=== PATIENT | female | born 1955 | race Hispanic/Latino ===

== ENCOUNTER 2019-11-05 13:48 | Observation (INO) | payer OTHER ==
[~2019-11-05] VITALS: Ht 154.9 cm; Wt 61.2 kg
--- NOTE | 2019-11-05 14:27 | Emergency Department Note ---
History of Present Illnes History of Present Illness Chief Complaint: Neurological History of Present Illness This is a 64 year old female Y/O AAOX3 PRESENTS TO THE ER C/O AMS ONSET THIS AM; PER DAUGHTER, PT WAS CONFUSED THIS AM AND REPEATS QUESTIONS FREQUENTLY; PT ALSO REPORTS FRONTAL HEADACHE AND CURRENTLY REPORTS PAIN BACK OF HEAD; PERRLA; UPRIGHT AND STEADY GAIT NOTED; BILATERAL EQUAL HAND RETAIL SALES TEAMMATE NOTED; PT ONLY ABLE TO RAISE LT EYEBROW; SYMMETRICAL SMILE NOTED; V/S/S; ER DR HORVATH IN TRIAGE FOR INITIAL EVAL. . Historian: Patient Arrival Mode: Car History limited by: language barrier Robotics Testing Technician Required: Yes (DAUGHTERS AT BED SIDE) Onset (how long ago): hour(s) Radiation: Reports non-radiation Severity: moderate Progression: improving Relieving factors: none Exacerbating factors: none Associated symptoms: Reports denies other symptoms Treatments prior to arrival: none Past Medical/Family History Physician Review I have reviewed the patient's past medical and family history. Any updates have been documented here. Past Medical History Recent Fever: No Clinical Suspicion of Infectio: No New/Unexplained Change in Ment: Yes Past Medical History: Hypertension Social History Smoking Cessation: Unknown if ever smoked Alcohol Use: None Any Illegal Drug Use: No Physically hurt or threatened: No Other Any Pre-Existing Lines (PICC,: No Review of Systems Review of Systems Constitutional: Reports no symptoms EENTM: Reports no symptoms Cardiovascular: Reports no symptoms Respiratory: Reports no symptoms Gastrointestinal: Reports no symptoms Genitourinary: Reports no symptoms Musculoskeletal: Reports no symptoms Integumentary: Reports no symptoms Neurological: Reports as per HPI, Reports headache (FRONTAL HEADCHE) Psychological: Reports no symptoms Endocrine: Reports no symptoms Hematological/Lymphatic: Reports no symptoms Physical Exam Related Data Allergies: Coded Allergies: ibuprofen (Verified Allergy, Intermediate, 11/05/19) Triage Vital Signs Vital Signs Date Time Temp Pulse Resp B/P (MAP) Pulse Ox O2 Delivery O2 Flow Rate FiO2 11/05/19 14:11 99.0 71 20 155/82 100 Room Air Vital signs reviewed: Yes Physical Exam CONSTITUTIONAL Constitutional: Present well-developed, Present well-nourished HENT HENT: Present normocephalic, Present atraumatic, Present oropharynx clear/moist, Present nose normal HENT L/R: Present left ext ear normal, Present right ext ear normal EYES Eyes: Reports PERRL, Reports conjunctivae normal NECK Neck: Present ROM normal PULMONARY Pulmonary: Present effort normal, Present breath sounds normal CARDIOVASCULAR Cardiovascular: Present regular rhythm, Present heart sounds normal, Present capillary refill normal, Present normal rate GASTROINTESTINAL Abdominal: Present soft, Present nontender, Present bowel sounds normal GENITOURINARY Genitourinary: Present exam deferred SKIN Skin: Present warm, Present dry MUSCULOSKELETAL Musculoskeletal: Present ROM normal NEUROLOGICAL Neurological: Present alert, Present oriented x 3, Present no gross motor or sensory deficits, Present other (NO NEURO DEFICIT AT THIS TIME) PSYCHOLOGICAL Psychological: Present mood/affect normal, Present judgement normal Procedures 12 Lead ECG Interpretation ECG Interpretation : ECG: ECG 1 Robotics Testing Technician: Interpreted by ED physician Date: Nov 05, 2019 Time: 14:43 Prior ECG tracings: not available for review Rhythm: sinus rhythm Rate: normal BPM: 69 QRS axis: left T wave inversion: aVR, V1, V4, V5, V6 T waves flattening: V2 Q waves: V1 Clinical Impression: abnormal ECG Assessment & Plan Medical Decision Making MDM TIA VS CVA Reassessment Reassessment doing better, AA0x3 , slow to recall but doing ok Assessment & Plan Final Impression: (1) TIA (transient ischemic attack) Depart Disposition: ADMITTED Last Vital Signs Date Time Temp Pulse Resp B/P (MAP) Pulse Ox O2 Delivery O2 Flow Rate FiO2 11/05/19 14:11 99.0 71 20 155/82 100 Room Air Physician Attestation Provider Attestation case discussed with Dr Caballero and ELAYNE Barnett MD Nov 05, 2019 14:27
--- OUTSIDE RECORDS SUMMARY | 2019-11-05 14:38 | XMS REPORT | Continuity of Care Document ---
Author Author [facility] t Organization [facility] Address [address] [place] [address] Phone Unavailable Care Team Providers Care Fish Frog Or Oyster Farmer Name Role Phone Unavailable Unavailable Problems Condition Name Condition Details Condition Category Status Onset Date Resolution Date Last Treatment Date Treating Clinician Comments Source Hyperlipidemia Hyperlipidemia Problem Active 2018-11-13 00:00:00 [facility] Allergies, Adverse Reactions, Alerts This patient has no known allergies or adverse reactions. Social History Smoking Status Start Date Stop Date Source Never Smoker [facility] nidhi Medications Ordered Medication Name Filled Medication Name Start Date Stop Da te Current Medication? Ordering Clinician Indication Dosage Frequency Signature (SIG) Comments Components Source ciclopirox 8 % topical solution APPLY TO THE AFFECTED AREA(S) BY TOPICAL ROUTE ONCE DAILY PREFERABLY AT BEDTIME OR 8 HOURS BEFORE WASHING ciclopirox 8 % topical solution APPLY TO THE AFFECTED AREA(S) BY TOPICAL ROUTE ONCE DAILY PREFERABLY AT BEDTIME OR 8 HOURS BEFORE WASHING No ciclopirox 8 % topical solution APPLY TO THE AFFECTED AREA(S) BY TOPICAL ROUTE ONCE DAILY PREFERABLY AT BEDTIME OR 8 HOURS BEFORE WASHING [facility] clotrimazole-betamethasone 1 %-0.05 % to pical cream Apply 1 application every day by topical route for 10 days. clotrimazole-betamethasone 1 %-0.05 % to pical cream Apply 1 application every day by topical route for 10 days. No clotrimazole-betamethasone 1 %-0.05 % to pical cream Apply 1 application every day by topical route for 10 days. Adarsh antunez [facility] Immunizations Ordered Immunization Name Filled Immunization Name Date Status Comments Source Tdap Tdap 2018-11-13 11:16:30 Completed Albert isaacs [facility] Vital Signs Vital Name Observation Time Observation Value Comments Source BP Diastolic 2019-10-22 00:00:00 74 mm[Hg] [facility] Height 2019-10-22 00:00:00 61 [in_i] [facility] BMI (Body Mass Index) 2019-10-22 00:00:00 25.5 kg/m2 [facility] BP Systolic 2019-10-22 00:00:00 134 mm[Hg] [facility] Body Weight 2019-10-22 00:00:00 135 [lb_av] [facility] BP Diastolic 2019-09-10 00:00:00 78 mm[Hg] [facility] Height 2019-09-10 00:00:00 61 [in_i] [facility] BMI (Body Mass Index) 2019-09-10 00:00:00 25.5 kg/m2 [facility] BP Systolic 2019-09-10 00:00:00 148 mm[Hg] [facility] Body Weight 2019-09-10 00:00:00 135 [lb_av] [facility] BP Diastolic 2018-11-13 00:00:00 82 mm[Hg] [facility] Height 2018-11-13 00:00:00 61 [in_i] [facility] BMI (Body Mass Index) 2018-11-13 00:00:00 24.9 kg/m2 [facility] BP Systolic 2018-11-13 00:00:00 138 mm[Hg] [facility] Body Weight 2018-11-13 00:00:00 132 [lb_av] [facility] Procedures Procedure Date / Time Performed Performing Clinician Sour e MAMMO, screening, digital, bilateral 2018-11-13 00:00:00 [facility] Plan of Care Planned Activity Planned Date Details Comments Source Future Appointment 2020-10-21 00:00:00 Patricia Sommer, [address]; [address], [place] [address] [facility] Encounters Start Date/Time End Date/Time Encounter Type Admission Type Att[facility] Facility Care Department Encounter ID Source 2019-10-22 00:00:00 2019-10-22 00:00:00 Patricia Sommer MD: [id number], [address], [place] [address], Ph. [facility] [place] - [facility] - CHRISTY_BRIAN_Byron (WAG) [id number] [facility] 2019-09-10 00:00:00 2019-09-10 00:00:00 Patricia Sommer MD: [address], [address], [place] [address], Ph. [facility] - [facility] - VM_HOFloyd_Inman (WAG) [id number] [facility] e 2018-11-13 00:00:00 2018-11-13 00:00:00 Herve hoffman MD: [address] [place] [address], Ph. [facility] - [facility] - [facility] [id number] [facility] Results Test Description Test Time Test Comments Results Result Comments Source SCR MAMM BILATERAL HEIDE CAD DIGITAL 2018-12-09 12:28:59 - SCR MAMM BILATERAL HEIDE CAD DIGITALBILATERAL DIGITAL SCREENING MAMMOGRAM 3D/2D WITH CAD: 12/09/2018CLINICAL: Asymptomatic. Digital breast tomosynthesis was performed in addition to routine CC and MLO views. Current mammographic images were evaluated by either a FotoSwipe M-Vu or a Bypass Mobile ImageMiniMonoscker CAD (computer aided detection system). Comparison is made to exams dated 10/25/2017 mammogram, 2014 mammogram - [facility]-, and 03/05/2012 mammogram - [facility]. There are scattered fibroglandular tissues in both breasts. There is a benign mass and an intramammary node in the left breast. There also are post operative findings in the right breast. Additionally, there is a biopsy clip in the left breast. No suspicious mass, architectural distortion, malignant type calcification, or lymph node abnormality detected. Breast architecture is stable compared to prior exams.IMPRESSION: BENIGNThere is no mammographic evidence of malignancy. Resume annual screening mammography in one year. Zion lawson/víctor:12/09/2018 12:28:59 copy to: [facility], ph: [phone], fax: [phone] Technologist: Savanah BROWN, [facility] FWImaging Technologist: Arin BROWN, [facility]-FWletter sent: BIRADS 1-2 Normal Mammogram BI-RADS: 2 Benign
--- NOTE | 2019-11-05 15:18 | Diagnostic Imaging Report ---
Examination: CT head without contrast Clinical Indication: Altered mental status. Confusion. Headache. Technique: Transaxial noncontrast images from the skull base through the vertex were obtained. Sagittal and coronal reformatted images were done. Dose modulation, iterative reconstruction, and/or weight based adjustment of the mA/kV was utilized to reduce the radiation dose to as low as reasonably achievable. Comparison: None. Findings: Scalp: No abnormalities. Bones: Intact. No fractures. No blastic or lytic lesions. Brain sulci: Appropriate for patient's age. Ventricles: Normal in size and configuration. No hydrocephalus. Extra-axial space: No abnormalities. Parenchyma: No abnormal densities. No masses, hemorrhage, or acute or chronic cortical based vascular insults. Suprasellar region: No abnormalities. Craniocervical junction: The foramen magnum is patent. No Chiari one malformation. Impression: No acute intracranial abnormality. Signed by: Dr. Sosa Nagy M.D. on 11/05/2019 3:15 PM
[2019-11-05 15:27] LABS: BASOPHILS % 0.5 % (0.0-1.0); EOSINOPHILS # (AUTO) 0.1 (0.0-0.4); EOSINOPHILS % 0.6 % (0.0-6.0); HEMATOCRIT 43.6 % (34.2-44.1); HEMOGLOBIN 13.8 g/dL (12.0-16.0); LYMPHOCYTES # (AUTO) 1.9 (1.0-3.2); LYMPHOCYTES % 24.6 % (18.0-39.1); MEAN CORPUSCULAR HEMOGLOBIN 25.7 pg (28-32); MEAN CORPUSCULAR HGB CONC 31.7 g/dL (31-35); MEAN CORPUSCULAR VOLUME 81.3 fL (81-99); MONOCYTES # (AUTO) 0.6 (0.2-0.8); NEUTROPHILS # (AUTO) 5.2 (2.1-6.9); PLATELET COUNT 326 x10e3/uL (140-360); RED BLOOD COUNT 5.36 x10e6/uL (3.6-5.1); RED CELL DISTRIBUTION WIDTH 13.8 % (11.7-14.4)
[2019-11-05 15:31] LABS: BILIRUBIN,URINE NEGATIVE (NEGATIVE); CLARITY,URINE SL CLOUDY (CLEAR); COLOR,URINE YELLOW (YELLOW); KETONES,URINE NEGATIVE (NEGATIVE); LEUKOCYTE ESTERASE ,URINE TRACE (NEGATIVE); NITRITE,URINE NEGATIVE (NEGATIVE); PROTEIN,URINE DIPSTICK NEGATIVE (NEGATIVE); URINE UROBILINOGEN 0.2 mg/dL (0.2 - 1)
[2019-11-05 15:32] LABS: INR 0.87; PROTHROMBIN TIME 12.3 seconds (11.9-14.5)
[2019-11-05 15:33] LABS: PARTIAL THROMBOPLASTIN TIME 35.2 seconds (23.8-35.5)
[2019-11-05 15:39] LABS: ALANINE AMINOTRANSFERASE 24 IU/L (0-55); ALBUMIN 4.1 g/dL (3.5-5.0); ALBUMIN/GLOBULIN RATIO 1.1 (0.8-2.0); ALKALINE PHOSPHATASE 103 IU/L (40-150); ANION GAP 18.9 mmol/L (8-16); BLOOD UREA NITROGEN 8 mg/dL (7-26); BUN/CREATININE RATIO 12 (6-25); CALCIUM 9.7 mg/dL (8.4-10.2); CARBON DIOXIDE 21 mmol/L (22-29); CHLORIDE 107 mmol/L (98-107); CREATINE KINASE 51 IU/L (29-168); CREATININE, SERUM 0.66 mg/dL (0.57-1.11); EST GLOMERULAR FILTRATION RATE > 60 ML/MIN (60-); GLUCOSE 99 mg/dL (74-118); POTASSIUM 3.9 mmol/L (3.5-5.1); SODIUM 143 mmol/L (136-145)
[2019-11-05 15:45] LABS: BACTERIA,URINE FEW /HPF; EPITHELIAL CELLS,URINE FEW /LPF; RBC,URINE 0-5 /HPF (0-5)
--- OUTSIDE RECORDS SUMMARY | 2019-11-05 16:26 | XMS REPORT | Continuity of Care Document ---
Author Author [facility] t Organization [facility] Address [address] [place] [address] [address] [place] [address] Phone Unavailable Care Team Providers Care Communication Lecturer Name Role Phone Robb HORVATH Attphys Unavailable Problems Condition Name Condition Details Condition Category Status Onset Date Resolution Date Last Treatment Date Treating Clinician Comments Source Hyperlipidemia Hyperlipidemia Problem Active 2018-11-13 00:00:00 [facility] Allergies, Adverse Reactions, Alerts This patient has no known allergies or adverse reactions. Social History Smoking Status Start Date Stop Date Source Never Smoker [facility] nidhi Medications Ordered Medication Name Filled Medication [...] AT BEDTIME OR 8 HOURS BEFORE WASHING [facility] clotrimazole-betamethasone 1 %-0.05 % to pical cream Apply 1 application every day by topical route for 10 days. clotrimazole-betamethasone 1 %-0.05 % to pical cream Apply 1 application every day by topical route for 10 days. No clotrimazole-betamethasone 1 %-0.05 % to pical cream Apply 1 application every day by topical route for 10 days. Adarsh antunez [facility] Immunizations Ordered Immunization Name Filled Immunization Name Date Status Comments Source Tdap Tdap 2018-11-13 11:16:30 Completed Albert isaacs [facility] Vital Signs Vital Name Observation Time Observation Value Comments Source BP Diastolic 2019-10-22 00:00:00 74 mm[Hg] [facility] Height 2019-10-22 00:00:00 61 [in_i] [facility] BMI (Body Mass Index) 2019-10-22 00:00:00 25.5 kg/m2 [facility] BP Systolic 2019-10-22 00:00:00 134 mm[Hg] [facility] Body Weight 2019-10-22 00:00:00 135 [lb_av] [facility] BP Diastolic 2019-09-10 00:00:00 78 mm[Hg] [facility] Height 2019-09-10 00:00:00 61 [in_i] [facility] BMI (Body Mass Index) 2019-09-10 00:00:00 25.5 kg/m2 [facility] BP Systolic 2019-09-10 00:00:00 148 mm[Hg] [facility] Body Weight 2019-09-10 00:00:00 135 [lb_av] [facility] BP Diastolic 2018-11-13 00:00:00 82 mm[Hg] [facility] Height 2018-11-13 00:00:00 61 [in_i] [facility] BMI (Body Mass Index) 2018-11-13 00:00:00 24.9 kg/m2 [facility] BP Systolic 2018-11-13 00:00:00 138 mm[Hg] [facility] Body Weight 2018-11-13 00:00:00 132 [lb_av] [facility] Procedures Procedure Date / Time Performed Performing Clinician [facility] e MAMMO, screening, digital, bilateral 2018-11-13 00:00:00 [facility] Plan of Care Planned Activity Planned Date Details Comments Source Future Appointment 2020-10-21 00:00:00 Patricia Sommer, [address]; [address], [place] [address] [facility] Encounters Start Date/Time End Date/Time Encounter Type Admission Type Attendi [facility] Facility Care Department Encounter ID Source 2019-10-22 00:00:00 2019-10-22 00:00:00 Patricia Sommer MD: [address], [address], [place] [address], Ph. [facility] [place] [facility] - CHRISTY_BRIAN_Byron (WAG) [id number] [facility] 2019-09-10 00:00:00 2019-09-10 00:00:00 Patricia Sommer MD: [address] [facility] [address] [address], Ph. [facility] - VM_HOFloyd_Byron (WAG) [id number] [facility] e 2018-11-13 00:00:00 2018-11-13 00:00:00 Herve hoffman MD: [address] [place] [address], Ph. [facility] [id number] [facility] Results Test Description Test Time Test Comments Results Result Comments Source CT BRAIN WO 2019-11-05 15:14:00 [place] [address] Patient Name: BALJIT YEPEZ MR #: [id number] : 1955 Age/Sex: 64/F Req #: [id number] Adm Physician: Ordered by: ELAYNE HORVATH MD Report #: [id number] Location: ER Room/Bed: Procedure: [id number] CT/CT BRAIN WO Exam Date: 11/05/19 Exam Time: 1432 REPORT STATUS: Signed Examination: CT head without contrast Clinical Indication: Altered mental status. Confusion. Headache. Technique: Transaxial noncontrast images from the skull base through the vertex were obtained. Sagittal and coronal reformatted images were done. Dose modulation, iterative reconstruction, and/or weight based adjustment of the mA/kV was utilized to reduce the radiation dose to as low as reasonably achievable. Comparison: None. Findings: Scalp: No abnormalities. Bones: Intact. No fractures. No blastic or lytic lesions. Brain sulci: Appropriate for patient's age. Ventricles: Normal in size and configuration. No hydrocephalus. Extra-axial space: No abnormalities. Parenchyma: No abnormal densities. No masses, hemorrhage, or acute or chronic cortical based vascular insults. Suprasellar region: No abnormalities. Craniocervical junction: The foramen magnum is patent. No Chiari one malformation. Impression: No acute intracranial abnormality. Signed by: Dr. Jordy Nagy M.D. on 11/05/2019 3:15 PM Dictated By: JORDY REEVES MD 14 Transcribed By: ARRON on 11/05/191514 COPY TO: ELAYNE HORVATH MD SCR MAMM BILATERAL HEIDE CAD DIGITAL 2018-12-09 12:28:59 - SCR MAMM BILATERAL HEIDE CAD DIGITALBILATERAL DIGITAL SCREENING MAMMOGRAM 3D/2D WITH CAD: 12/09/2018CLINICAL: Asymptomatic. Digital breast tomosynthesis was performed in addition to routine CC and MLO views. Current mammographic images were evaluated by either a Pluralsight M-Vu or a Reelation ImageChecker CAD (computer aided detection system). Comparison is made to exams dated 10/25/2017 mammogram, 2014 mammogram - [facility] and 03/05/2012 mammogram - [facility]. There are scattered fibroglandular tissues in both [...] annual screening mammography in one year. Zion Guzman M.D. ss/penrad:12/09/2018 12:28:59 copy to: [facility], ph: [phone], fax: [phone] Technologist: Savanah BROWN, [facility] FWImaging Technologist: Arin BROWN, [facility]-FWletter sent: BIRADS 1-2 Normal Mammogram BI-RADS: 2 Benign
[2019-11-05] MEDS ORDERED: DIPHENHYDRAMINE HCL INJ 50 MG/ML VIAL IV PRN (16:30)
[2019-11-05] MEDS ORDERED: ACETAMINOPHEN 325 MG TAB PO PRN (16:30)
[2019-11-05] MEDS ORDERED: SODIUM CHLORIDE FLUSH 10 ML SYR INJ PRN (16:30)
[2019-11-05] MEDS ORDERED: ONDANSETRON HCL INJ 2MG/ML 2ML 2 MG/ML VIAL IV PRN (16:30)
[2019-11-05] MEDS: FAMOTIDINE 20 MG TAB PO SCH (17:25)
--- NOTE | 2019-11-05 17:45 | NUR ---
pt arrived to room 215 from ER. pt awake, alert, oriented X3, ambulatory with stand-by assist. no s/s distress. will continue to monitor.
[2019-11-05 18:00] VITALS: BP 141/71
--- NOTE | 2019-11-05 19:00 | NUR ---
change of shift report given to ROB Crane for completion of admission and transfer of care. pt in stable condition.
[2019-11-05 19:30] VITALS: BP 152/80
[2019-11-05 19:32] VITALS: BP 141/71
[2019-11-05] MEDS ORDERED: POLYETHYLENE GLYCOL 3350 17 GM PACK PO PRN (19:45)
[2019-11-05] MEDS ORDERED: HYDRALAZINE HCL 20 MG/ML VIAL IV PRN (19:45)
[2019-11-05] MEDS ORDERED: TEMAZEPAM 15 MG CAP PO PRN (21:00)
--- NOTE | 2019-11-05 21:22 | History and Physical ---
PCP: No PCP listed. CONSULTING PHYSICIANS: Valdo Danielson MD. CHIEF COMPLAINT: Confused. HISTORY OF PRESENT ILLNESS: The patient is a 64-year-old female, who had altered mental status this morning, apparently repeating questions frequently according to her daughter. In the emergency department, the patient complained of frontal headache and occipital pain while having an upright and steady gait, bilateral equal hand sword swallower, symmetrical smile, but only able to raise her left eyebrow. CT scan of the head was negative for acute intracranial findings. Neurology has been consulted and echocardiogram, bilateral carotid Doppler ultrasound as well as MRI of the brain have all been ordered. The patient was also noted by ER staff to have a slow recall. PAST MEDICAL HISTORY: Hypertension and hyperlipidemia. She denies any history of rheumatoid arthritis, however, wonders if she could have it as her parents had it. PAST SURGICAL HISTORY: Hysterectomy. FAMILY HISTORY: Mother had hypertension and rheumatoid arthritis. Father had rheumatoid arthritis. SOCIAL HISTORY: The patient denies any previous history of tobacco, alcohol, or illicit drug use. She lives with her daughter. The patient is a seamstress. ALLERGIES: THE PATIENT DENIES ANY HISTORY OF ALLERGY TO IBUPROFEN, WHICH IS LISTED IN HER ALLERGY LIST CURRENTLY. SHE STATES THAT ALEVE HAS CAUSED HER SHAKING IN THE PAST AND SHE THINKS SHE IS ALLERGIC TO ALEVE. HOME MEDICATIONS: None listed. REVIEW OF SYSTEMS: CONSTITUTIONAL: The patient denies any recent history of weight loss or weight gain in the last 6 months. Denies fever. Denies any sick contacts at all. EYES: The patient wears glasses. SKIN: The patient has possible" fingernail fungus," but denies any skin problems such as rash, itching, or lesions. GI: She cannot recall when she last had a bowel movement. MUSCULOSKELETAL: Hand numbness bilaterally, which is not new. NEUROLOGIC: As per history of present illness, the patient does not recall being admitted. She just woke up here, cannot recall specifics of how she arrived. She has short-term memory loss, has had frontal headache and occipital pain in the emergency department. Currently, denies any headache or head pain. Denies dizziness. Rossy available for Guyanese interpretation. A 14-point review of systems was completed and the patient denies any type for problems with ears, nose, throat, respiratory, genitourinary, psychiatric, cardiovascular, gastrointestinal, endocrine, allergic/immunological, hematologic/lymphatic systems. PHYSICAL EXAMINATION: VITAL SIGNS: Temperature 97.7, pulse 61, blood pressure 141/71, respirations 19, oxygen saturation 100% on room air. Height 5 feet 1 inch, weight 135 pounds, BMI 25.5. GENERAL: The patient is sitting in a chair at the bedside, in no acute distress. She is pleasant, however, has very poor recall and poor short-term memory. Long-term memory seems to be intact. LUNGS: Clear to auscultation. Respiratory pattern even and unlabored. No supplemental oxygen. HEENT: EOMI. Pupils are equal, round, and reactive to light and accommodation. NECK: Supple. No lymphadenopathy. No thyromegaly or JVD noted. CARDIOVASCULAR: Regular rate and rhythm without murmur. ABDOMEN: Bowel sounds positive. Soft, nontender. No guarding. EXTREMITIES: No pitting edema. No clubbing, cyanosis, or notable swelling. No signs of DVT. NEUROLOGICAL: GCS 15. Nonfocal. Forgetful, poor short-term memory. No drift when bedside neurological examination completed. No drift of either lower extremity as well. She has equal hand sword swallower. Only able to raise the left eyebrow. LABORATORY DATA: WBC 7.81, RBC 5.36, hemoglobin 13.8, hematocrit 43.6, and platelets 326. PT 12.3, INR 0.87, PTT 35.2. Sodium 143, potassium 3.9, chloride 107, CO2 of 21, anion gap 18.9, BUN 8, creatinine 0.66, estimated GFR greater than 60, glucose 99, calcium 9.7, total bilirubin 0.4, AST 22, ALT 24, alkaline phosphatase 103. Creatine kinase 51, CK-MB 0.7, troponin I 0.014. Total protein 7.8, albumin 4.1. Urinalysis was completed; color is yellow, clarity slightly cloudy, pH 6, specific gravity 1.02, negative for ketones, small amount of blood, negative for nitrites, trace amount of leukocyte esterase, negative bilirubin, 0.2 urobilinogen, rbc 0-5, wbc 6-10, few bacteria, few epithelial cells. Coronavirus PCR collected on 11/04, pending. IMAGING: CT of the brain shows no acute intracranial abnormalities. Echocardiogram pending. MRI of the brain pending. Bilateral carotid Doppler ultrasound pending. A 12-lead ECG showed normal sinus rhythm with a heart rate of 69. ASSESSMENT AND PLAN: 1. Transient ischemic attack versus cerebrovascular accident. Neurology has been consulted. Physical Therapy to eval and treat. Follow up on the aforementioned ordered diagnostic studies. Neurological bedside assessments q.4 hours for now. The patient was seen in the ER 11 and currently in room 215. 2. Controlled hypertension. Blood pressure 141/71. Home medications may not have been entered as of yet. We will resume any home antihypertensives. The patient has been started on p.r.n. IV hydralazine, however, we will change parameter to 10 mg IV every 4 hours p.r.n. for systolic blood pressure greater than 170 mmHg, permissive hypertension due to neurological status. 3. Hyperlipidemia. We will check lipid panel in the morning. Resume any antihyperlipidemic home medication if needed. 4. Prophylaxis, Pepcid, ambulatory. History and physical, billing code [id number], time spent 60 minutes. Dictated by Shaun Lambert NP MD MURALI Stroud/MONA /[id number]
[2019-11-05 23:53] VITALS: BP 118/73
[2019-11-06] VITALS (8 sets, daily range): BP systolic 109–136; BP diastolic 55–73
[2019-11-06 06:12] LABS: BASOPHILS % 0.6 % (0.0-1.0); EOSINOPHILS # (AUTO) 0.3 (0.0-0.4); HEMOGLOBIN 12.6 g/dL (12.0-16.0); LYMPHOCYTES # (AUTO) 2.7 (1.0-3.2); LYMPHOCYTES % 40.6 % (18.0-39.1); MEAN CORPUSCULAR HGB CONC 31.5 g/dL (31-35); MEAN CORPUSCULAR VOLUME 82.5 fL (81-99); MONOCYTES # (AUTO) 0.6 (0.2-0.8); MONOCYTES % 8.4 % (4.4-11.3); NEUTROPHILS % 46.1 % (38.7-80.0); PLATELET COUNT 291 x10e3/uL (140-360); RED BLOOD COUNT 4.85 x10e6/uL (3.6-5.1); RED CELL DISTRIBUTION WIDTH 13.9 % (11.7-14.4)
[2019-11-06 06:24] LABS: CHOL/HDL RATIO 5.6 (3.0-3.6); MAGNESIUM 1.9 MG/DL (1.3-2.1); PHOSPHORUS 4.1 MG/DL (2.3-4.7)
[2019-11-06 06:46] LABS: THYROID STIMULATING HORMONE 0.843 uIU/mL (0.350-4.940)
--- NOTE | 2019-11-06 07:00 | NUR ---
PATIENT IS ALERT AND IN STABLE CONDITION WITH NO S/S OF RESPIRATORY DISTRESS- NO PAIN VOICED. CALL LIGHT IS WITHIN REACH, PATIENT INSTRUCTED TO CALL FOR ASSISTANCE NEEDED.
--- NOTE | 2019-11-06 07:42 | NUR ---
Dr. Danielson called and message left for him concerning consult
[2019-11-06] MEDS: FAMOTIDINE 20 MG TAB PO SCH ×2 (08:55→15:32)
[2019-11-06] MEDS: DOCUSATE SODIUM 100 MG CAP PO SCH ×2 (08:55→15:32)
[2019-11-06 11:15] LABS: % IRON SATURATION 23 % (15-50); IRON 71 ug/dL (50-170); TOTAL IRON BINDING CAPACITY 309 ug/dL (261-478); TRANSFERRIN 221 mg/dL (180-382)
--- NOTE | 2019-11-06 12:44 | NUR ---
PATIENT OFF THE UNIT TO MRI PER WHEELCHAIR. PATIENT IS IN STABLE CONDITION WITH NO S/S OF RESPIRATORY DISTRESS.
--- NOTE | 2019-11-06 14:01 | Diagnostic Imaging Report ---
Examination: MRI BRAIN WO CONTRAST History: Headache. TIA. Comparison studies: Head CT performed yesterday. Technique: Sagittal T2; axial DWI, FLAIR, GRE or SWI, T1, Coronal FLAIR. Intravenous contrast: None Findings: Scalp: No abnormal signal. No masses. Bone marrow: Normal in signal intensity. Brain volume: Adequate for age. No volume loss. Ventricles: Normal in size and configuration. No hydrocephalus. Extra-axial spaces: No abnormalities. Parenchyma: No abnormal signal intensities. No masses, hemorrhage, or acute or chronic vascular insults. Suprasellar and sellar region: No abnormalities. Craniocervical junction: No abnormalities. The foramen magnum is patent. No Chiari malformations. Vessels: Normal flow-voids in the arteries and sinuses. Additional findings:None. IMPRESSION: No acute intracranial abnormalities. Signed by: Dr. Sosa Nagy M.D. on 11/06/2019 1:54 PM
--- NOTE | 2019-11-06 14:02 | Diagnostic Imaging Report ---
Examination: MRA HEAD WO, MRA NECK WO CONTRAST History: Headache. Comparison studies: None Technique: 2-D and 3-D [id number] MR angiograms of the cervical and intracranial circulations were obtained. MIP images of the arteries were isolated into the right and left cervical circulations and anterior and posterior intracranial circulations, 180 degree projections. Sagittal and coronal MPR images, and axial source images are available for evaluation. Degree of stenosis at the carotid bulbs, if present, will be calculated using NASCET criteria where the smallest diameter at the location of stenosis is compared to the diameter of the more distal non-diseased vessel lumen. Findings: Cervical MRA Aortic arch: Normal 3 great vessel origin. Patent. Internal carotid arteries: No flow abnormalities at the origins of the common carotid arteries, the cervical carotid bifurcations or in the cervical segments. Vertebral arteries: No flow abnormalities at the origins of the vertebral arteries or through its cervical segments (V1-V3). Intracranial MRA: Internal carotid arteries: Patent. A left clinoid/para ophthalmic aneurysm is identified pointing laterally with a wide neck measuring 4.5 mm and a 3.9 mm neck to dome measurement. Anterior cerebral arteries: Patent A1 and A2 segments. Middle cerebral arteries: Patent M1 and M2 segments. Vertebrobasilar circulation: Patent. Posterior cerebral arteries: Patent bilateral P1 and P2 segments. Anatomical variants: Anterior communicating arteries: Patent. Posterior communicating arteries: Not visualized bilaterally. Vertebral arteries:Codominant. Duplicated left superior cerebellar artery. IMPRESSION: 1. No cervical or intracranial arterial stenosis or occlusion. 2. Left clinoid/paraophthalmic internal carotid artery aneurysm as detailed above Signed by: Dr. Sosa Nagy M.D. on 11/06/2019 1:59 PM
--- NOTE | 2019-11-06 19:25 | NUR ---
PATIENT IS IN STABLE CONDITION WITH NO S/S OF RESPIRATORY DISTRESS. NO PAIN VOICED BY THE PATIENT. CALL LIGHT IS WITHIN REACH, PATIENT INSTRUCTED TO CALL FOR ASSISTANCE NEEDED. REPORT GIVEN TO ONCOMING NURSE.
--- NOTE | 2019-11-06 19:26 | NUR ---
Patient received lying in bed. AAO x 3. Patient had no complaints of pain. Respirations even and non-labored. Safety measures in place. Patient instructed to call for assistance when needed. Call light within reach.
[2019-11-06] MEDS: ATORVASTATIN 40 MG TAB PO SCH (21:55)
--- NOTE | 2019-11-06 22:06 | Consultation ---
DATE OF CONSULTATION: 11/06/2019 Neurology Consultation HISTORY OF PRESENT ILLNESS: Ms. Kenyon is a 64-year-old female, who presents with confusion, repeating questions and possibly some left-handed weakness. She presented to the emergency room. She is not sure how she got to the emergency room. She had a headache, occipital pain, and neck stiffness at that time. CT scan was initially negative and we were consulted to evaluate the patient. MRI had been ordered to assess and Doppler duplex. She was complaining of weakness and fatigue to me of bilateral upper extremities, not just left-sided, bilateral lower extremities with denial of any chest pain, but increased dyspnea on exertion. No shortness of breath. No cough. No respiratory symptoms. PAST MEDICAL HISTORY: Includes hypertension and hyperlipidemia. She does not take any medications for it. She has a history of hysterectomy. FAMILY HISTORY: Hypertension and rheumatoid arthritis. SOCIAL HISTORY: Denies tobacco, alcohol, or drugs. The patient is a poor historian. ALLERGIES: IBUPROFEN, WHICH IS A RASH. REVIEW OF SYSTEMS: Fatigue, weakness, and headache. No shortness of breath, but increased exertional dyspnea. Denies nausea or vomiting. Endorses paresthesias and heaviness of the legs. Otherwise, 14-point review of systems negative. PHYSICAL EXAMINATION: VITAL SIGNS: On admission, temperature is 97.7, heart rate of 61 and regular, and blood pressure 141/71. HEENT: Shows extraocular muscles intact. Face symmetric. Tongue is midline. Speech is clear. She appears comfortable. Her alertness is normal. Her awareness and orientation are normal x3. She does not recall exactly what happened that bring her here, but she does know she is in the hospital. She knows her daughter brought her. LUNGS: Clear to auscultation. ABDOMEN: Soft and nontender. PULMONARY: Clear to auscultation. CARDIOVASCULAR: Regular rate and rhythm. There is no nuchal rigidity or meningismus. There is no carotid bruits noted on exam. NEUROLOGICAL: Cranial nerves are intact. Pupils are reactive. Face is symmetric. Tongue is midline. Speech is clear. There is no ptosis. There is no eyelid droop with upgaze. Strength in the bilateral upper extremities is 4/5, lower extremity is 4/5. Reflexes symmetric, 1/4. Sensory grossly intact to upper and lower extremities. There is no primary ataxia. ASSESSMENT AND PLAN: I am seeing the patient for acute delirium, which could be transient global amnesia versus infectious delirium as well as a transient ischemic attack. It seems less likely given the patient's report of about a week of symptoms of weakness preceding it. We are going to get a myasthenic panel, stroke workup, so on Plavix and statin. Get a lipid panel, thyroid, SUNITA and we will proceed from there. MD PNACHO ALCAZAR/MONA /[id number]
--- NOTE | 2019-11-06 22:11 | NUR ---
Date of Service: 11/06/2019 HISTORY OF PRESENT ILLNESS: The patient is a 64-year-old female, who had altered mental status this morning, apparently repeating questions frequently according to her daughter. In the emergency department, the patient complained of frontal headache and occipital pain while having an upright and steady gait, bilateral equal hand sales engagement manager, symmetrical smile, but only able to raise her left eyebrow. CT scan of the head was negative for acute intracranial findings. Neurology has been consulted and echocardiogram, bilateral carotid Doppler ultrasound as well as MRI of the brain have all been ordered. The patient was also noted by ER staff to have a slow recall. Rossy available for [place] Islander interpretation. ROS: Per RN, less confused. Patient rates frontal DUVAL 2/10, denies occipital DUVAL. She is now able to raise both eyebrows. Reports able to ambulate without difficulty. PHYSICAL EXAMINATION: VITAL SIGNS: Temperature 98.1, pulse 60, blood pressure 118/63, respirations 20, oxygen saturation 96% on room air. Height 5 feet 1 inch, weight 135 pounds, BMI 25.5. GENERAL: The patient is supine. She is pleasant, however, has very poor recall and poor short-term memory. Long-term memory seems to be intact. LUNGS: Clear to auscultation. Respiratory pattern even and unlabored. No supplemental oxygen. HEENT: EOMI. Pupils are equal, round, and reactive to light and accommodation. NECK: Supple. No lymphadenopathy. No thyromegaly or JVD noted. CARDIOVASCULAR: Regular rate and rhythm without murmur. ABDOMEN: Bowel sounds positive. Soft, nontender. No guarding. EXTREMITIES: No pitting edema. No clubbing, cyanosis, or notable swelling. No signs of DVT. NEUROLOGICAL: GCS 15. Nonfocal. Forgetful, poor short-term memory. No drift when bedside neurological examination completed. No drift of either lower extremity as well. She has equal hand sales engagement manager. Able to raise both eyebrows. LABORATORY DATA: Reviewed. 11/04 Coronavirus PCR negative. 11/05 WBC 6.58. BUN 8, creatinine 0.66, estimated GFR >60. *Immunology workup; assessment for Myesthenia Gravis, Sjogrens: Final results pending IMAGING/OTHER: 11/04 12-lead ECG showed normal sinus rhythm with a heart rate of 69. 11/04 CT of the brain shows no acute intracranial abnormalities. 11/05 Echocardiogram normal; EF estimated 60-656%. 11/05 MRI of the brain: No acute intracranial abnormalities. 11/05 Bilateral carotid Doppler ultrasound normal; no evidence of significant stenosis. 11/05 Cervical, Neck & Intracranial MRA: No cervical or intracranial arterial stenosis or occlusion; Left clinoid/paraophthalmic internal carotid artery aneurysm *EEG: Ordered, pending ASSESSMENT AND PLAN: 1. AMS from baseline; TIA vs other etiology: Neurology workup underway. PT to eval and treat. Follow up on the aforementioned ordered diagnostic studies. Neurological bedside assessments WNL; no drift. 2. Controlled hypertension. Blood pressure 118/63. Home medications may not have been entered as of yet. We will resume any home antihypertensives. The patient has been started on p.r.n. IV hydralazine, however, we will change parameter to 10 mg IV every 4 hours p.r.n. for systolic blood pressure greater than 170 mmHg, permissive hypertension due to neurological status. 3. Hyperlipidemia. Triglycerides 199. Resume any antihyperlipidemic home medication. PPX: Kelsi, ambulatory. Billing code [id number], time spent 35 minutes.
[2019-11-07] VITALS (7 sets, daily range): BP systolic 112–149; BP diastolic 64–84
[2019-11-07 06:08] LABS: BASOPHILS # (AUTO) 0.1 (0.0-0.1); BASOPHILS % 0.8 % (0.0-1.0); EOSINOPHILS # (AUTO) 0.3 (0.0-0.4); EOSINOPHILS % 4.4 % (0.0-6.0); HEMATOCRIT 41.1 % (34.2-44.1); HEMOGLOBIN 12.8 g/dL (12.0-16.0); LYMPHOCYTES # (AUTO) 2.7 (1.0-3.2); LYMPHOCYTES % 40.7 % (18.0-39.1); MEAN CORPUSCULAR HEMOGLOBIN 25.6 pg (28-32); MEAN CORPUSCULAR HGB CONC 31.1 g/dL (31-35); MEAN CORPUSCULAR VOLUME 82.2 fL (81-99); MONOCYTES # (AUTO) 0.6 (0.2-0.8); MONOCYTES % 8.3 % (4.4-11.3); NEUTROPHILS % 45.5 % (38.7-80.0); PLATELET COUNT 289 x10e3/uL (140-360)
[2019-11-07 06:43] LABS: ANION GAP 14.9 mmol/L (8-16); BLOOD UREA NITROGEN 10 mg/dL (7-26); BUN/CREATININE RATIO 16 (6-25); CALCIUM 8.7 mg/dL (8.4-10.2); CARBON DIOXIDE 21 mmol/L (22-29); CHLORIDE 108 mmol/L (98-107); CREATININE, SERUM 0.64 mg/dL (0.57-1.11); EST GLOMERULAR FILTRATION RATE > 60 ML/MIN (60-); GLUCOSE 91 mg/dL (74-118); POTASSIUM 3.9 mmol/L (3.5-5.1); SODIUM 140 mmol/L (136-145)
--- NOTE | 2019-11-07 06:43 | NUR ---
RECEIVED BEDSIDE SHIFT REPORT FROM OFF GOING NURSE. PATIENT IS RESTING IN BED, DENIES PAIN OR DISCOMFORT. NO ACUTE DISTRESS NOTED. CALL LIGHT WITHIN REACH. BED IN THE LOWEST POSITION.
[2019-11-07] MEDS: FAMOTIDINE 20 MG TAB PO SCH ×2 (08:30→16:06)
[2019-11-07] MEDS: DOCUSATE SODIUM 100 MG CAP PO SCH ×2 (08:57→16:06)
[2019-11-07] MEDS: CLOPIDOGREL BISULFATE 75 MG TAB PO SCH (08:57)
--- NOTE | 2019-11-07 11:22 | NUR ---
awake calm and responsive vs : 97.8 52 132/71 awake- oriented x 3 eomi perrl no ptosis face symmetric speech clear and coherent no nuchal rigidity rrr (bradycardic) cta abd soft strength - director of housing 4+/5 bicepts 4/5 ble 4+/5 reflexes 1/4 no myotonia, no tremors or ataxai a/p mild diffuse subacute weakness- myopathy /myostitic workup in progress- labs pending, no fever or myalgia confusion - TGA vs TIA? no evidence stroke, continue ASA and statin EEG is normal Aneurysm- vascular surgical eval, but it is non-surgical at this time, however an evaluation and recommendation by vascular surgical neuro-surgical team woudl be helpful
--- NOTE | 2019-11-07 11:23 | NUR ---
eeg - 30 min study 31012 10/20 international electrode placement system, read in bipolar and transverse montage w concurrent video recording EEG data 10hz PDR, sinusoidal, reactive to eye opening and closure 16-22hz Beta frequency bifrontally, wnl no sleep captured EEG interpretation: normal this EEG is normal
--- NOTE | 2019-11-07 19:19 | NUR ---
BEDSIDE SHIFT REPORT GIVEN TO ONCOMING NURSE. PATIENT IS IN STABLE CONDITION, NO ACUTE DISTRESS NOTED. DENIES PAIN OR DISCOMFORT AT THIS TIME. CALL LIGHT WITHIN REACH. BED IN THE LOWEST POSITION.
--- NOTE | 2019-11-07 20:46 | NUR ---
Date of Service: 11/07/2019 PCP: Does not have a PCP. Recently patient went to [facility] on [address], , and saw Dr. James Sommer ATTENDING PHYSICIAN: Dr. Talat Caballero CONSULTING PHYSICIAN: Dr. Valdo Danielson Home Medications: Citrocal +vit D daily Sosa, HISTOLOGY TECH available for [place]ic interpretation. ROS: Per RN, less confused. Patient denies frontal/occipital DUVAL at present. Reports able to ambulate without difficulty. PHYSICAL EXAMINATION: VITAL SIGNS: Temperature 97.9, pulse 52, blood pressure 112/64, respirations 20, SpO2 96% on room air. Height 5 feet 1 inch, weight 135 pounds, BMI 25.5. GENERAL: The patient is supine. She is pleasant, however, has very poor recall and poor short-term memory. Long-term memory seems to be intact. LUNGS: Clear to auscultation. Respiratory pattern even and unlabored. No supplemental oxygen. HEENT: EOMI. Pupils are equal, round, and reactive to light and accommodation. NECK: Supple. No lymphadenopathy. No thyromegaly or JVD noted. CARDIOVASCULAR: Regular rate and rhythm without murmur. ABDOMEN: Bowel sounds positive. Soft, nontender. No guarding. EXTREMITIES: No pitting edema. No clubbing, cyanosis, or notable swelling. No signs of DVT. NEUROLOGICAL: GCS 15. Nonfocal. Forgetful, poor short-term memory. No drift when bedside neurological examination completed. No drift of either lower extremity as well. She has equal hand band lining bander. She is unable to raise both eyebrows; lifts left eyebrow only. LABORATORY DATA: Reviewed. 11/04 Coronavirus PCR negative. 11/05 WBC 6.58. BUN 8, creatinine 0.66, estimated GFR >60. *myopathy /myostitic workup in progress- labs pending, no fever or myalgia IMAGING/OTHER: 11/04 12-lead ECG showed normal sinus rhythm with a heart rate of 69. 11/04 CT of the brain shows no acute intracranial abnormalities. 11/05 Echocardiogram normal; EF estimated 60-656%. 11/05 MRI of the brain: No acute intracranial abnormalities. 11/05 Bilateral carotid Doppler ultrasound normal; no evidence of significant stenosis. 11/05 Cervical, Neck & Intracranial MRA: No cervical or intracranial arterial stenosis or occlusion; Left clinoid/paraophthalmic internal carotid artery aneurysm 11/06 EEG: Normal 11/06 PT Eval: 64 y/o female Dx with TIA evaluated for PT services. Pt has proximal muscle weakness but was very functional. Mod(I) with bed mobility, transfers and gait w/o AD. Safe and steady. No PT needed at this time. May benefit from outpatient PT services if pt continues to feel unsteady and weak. ASSESSMENT AND PLAN: 1. AMS from baseline; Mild Diffuse Subacute Weakness, Aneurysm: -Neurology workup underway. -TGA vs TIA? -EEG WNL. -No evidence of stroke, continue ASA and statin. -PT eval/treat. -Neurological bedside assessments generally WNL; no drift. -Follow up on the aforementioned ordered diagnostic studies. -MRA showed Left clinoid/paraophthalmic internal carotid artery aneurysm -Aneurysm is nonsurgical at this time, however per Neurologist an evaluation and recommendation by vascular surgical neuro-surgical team would be helpful 2. Controlled hypertension. Blood pressure 112/64. Home medications may not have been entered as of yet. We will resume any home antihypertensives. Change parameter of Hydralazine back to to 10 mg IV every 4 hours p.r.n. for systolic blood pressure greater than 150 mmHg. 3. Hyperlipidemia. Triglycerides 199. Resume any antihyperlipidemic home medication. 4. Asymptomatic Bradycardia: HR 52; monitor PPX: Pepcid, ambulatory. Discharge Planning: left with Dr. Danielson regarding current workup, readiness to discharge home. Case discussed with patient's Daughter Lydia [phone]. Billing code [id number], time spent 35 minutes.
[2019-11-07] MEDS: ATORVASTATIN 40 MG TAB PO SCH (21:34)
[2019-11-08] VITALS: BP 130/65
[2019-11-08 04:00] VITALS: BP 112/76
--- NOTE | 2019-11-08 06:40 | NUR ---
Walking rounds done. Bedside report given to oncoming nurse.
[2019-11-08 07:22] VITALS: BP 125/66
--- NOTE | 2019-11-08 08:12 | NUR ---
Day 3 obs. Shaun Lambert NP documented he was contacting Dr. Danielson to discuss dc plan. CM will follow up with Shaun Lambert NP today.
[2019-11-08 08:24] VITALS: BP 125/66
[2019-11-08] MEDS: FAMOTIDINE 20 MG TAB PO SCH ×2 (08:29→16:00)
[2019-11-08] MEDS: CLOPIDOGREL BISULFATE 75 MG TAB PO SCH (08:30)
[2019-11-08] MEDS: DOCUSATE SODIUM 100 MG CAP PO SCH ×2 (08:30→16:00)
[2019-11-08 11:32] VITALS: BP 130/64
--- NOTE | 2019-11-08 11:37 | NUR ---
Spoke to Shaun Lambert NP. He plans on discharging pt today, but states will speak with Dr. Oropeza.
--- NOTE | 2019-11-08 12:43 | NUR ---
awake no acute overnight events vs : 98.6 109-57 130/64 awake- oriented x 3 eomi perrl no ptosis face symmetric speech clear and coherent no nuchal rigidity rrr (bradycardic) cta abd soft strength - dub room engineer 4+/5 biceps 4/5 ble 4+/5 reflexes 1/4 no myotonia, no tremors or ataxia a/p mild diffuse subacute weakness- myopathy /myostitic workup in progress- labs pending, no fever or myalgia- outpt follow up is needed, labs can take >7 days confusion - TGA vs TIA? no evidence stroke, continue ASA and statin EEG is normal Aneurysm- vascular surgical eval, but it is non-surgical at this time, however an evaluation and recommendation by vascular surgical neuro-surgical team would be helpful neuro ok to dc w/ outpt follow up
[2019-11-08] MEDS ORDERED: PLAVIX75 MG PO (14:57)
[2019-11-08] MEDS ORDERED: Atorvastatin PO (14:57)
[2019-11-08] MEDS ORDERED: ACETAMINOPHEN325 M1 PO (14:57)
[2019-11-08] MEDS ORDERED: COLACE100 MG PO (14:57)
[2019-11-08] MEDS ORDERED: ONDANSETRON HCL 4 MG ORAL DISINTEGRATING TAB PO PRN (15:15)
[2019-11-08 15:36] VITALS: BP 133/72
--- NOTE | 2019-11-08 17:22 | NUR ---
Right AC IV discontinued. No signs of infiltration noted. 2x2 gauze and coban placed. Refused wheelchair. Accompanied by PCT to personal car. AAOX3 to time, person,place. Respirations even and unlabored. Denies pain. Discharge instructions, rx, and all personal belongings taken with patient.
--- NOTE | 2019-11-08 18:03 | Discharge Summary ---
PRIMARY CARE PHYSICIAN: Does not have a specific PCP. However, the patient recently went to [facility] on [address] [phone] James Sommer. CONSULTING PHYSICIAN: Dr. Valdo Danielson with Neurology. CHIEF COMPLAINT: Confused. HISTORY OF PRESENT ILLNESS: This patient is a 64-year-old female, who had altered mental status on the morning of 11/05/2019. Apparently, repeating questions frequently according to her daughter. In the emergency department, the patient complained of frontal headache and occipital pain while having an upright and steady gait. Bilateral equal hand reading assistant, symmetrical smile, but only able to raise her left eyebrow. CT scan of the head was negative for acute intracranial findings. Neurology was consulted and echocardiogram, bilateral carotid Doppler ultrasound, as well as MRI of the brain were ordered. The patient was noted by the ER staff to have a slow recall. Please see dictated history and physical for past medical, surgical, family, social history, as well as allergies. ADMITTING DIAGNOSES: Included: 1. Transient ischemic attack versus cerebral vascular accident. 2. Controlled hypertension. 3. Hyperlipidemia. DISCHARGE DIAGNOSES: As follows: 1. Altered mental status from baseline; mild diffuse subacute weakness, left clinoid/paraophthalmic internal carotid artery aneurysm. 2. Controlled hypertension. 3. Hyperlipidemia. 4. Asymptomatic bradycardia. The patient's coronavirus PCR was negative. WBC and renal labs were within normal limits. Several imaging and other studies were completed. On 11/04, 12-lead ECG showed normal sinus rhythm with a heart rate of 69. 5. On 11/04, CT of the brain showed no acute intracranial abnormalities. 6. On 11/05. Echocardiogram was normal. Ejection fraction estimated at 60% to 65%. 7. On 11/05, MRI of the brain showed no acute intracranial abnormalities. 8. On 11/05, bilateral carotid Doppler ultrasound was normal. No evidence of significant stenosis. 9. Cervical neck and intracranial MRA on 11/05. No cervical or intracranial arterial stenosis or occlusion. Left clinoid/paraophthalmic internal carotid artery aneurysm. 10. On 11/06. EEG was normal. Per the 11/06 PT evaluation, the patient had proximal muscle weakness, but was very functional, moderate independent with bed mobility, transfers, and gait without assistive device, safe and steady. No PT needed at this time. May benefit from outpatient PT services if the patient continues to feel unsteady and weak. Neurology workup is still underway. TGA versus TIA? is listed in Dr. Danielson's documentation. 11. Myopathy/myositic workup is in progress. Labs are pending and likely will be back for approximately 7 days. The patient has no fever or myalgia. Aneurysm is nonsurgical at this time. However, per the neurologist and evaluation and recommendation by vascular surgical neuro-surgical team would be helpful. The patient's blood pressure was controlled during her stay. Her triglycerides were elevated at 199. Thus, the patient will be sent home on a statin, atorvastatin 40 mg p.o. at bedtime. Also, include a prescription for Plavix 75 mg p.o. daily, Colace 100 mg p.o. b.i.d., Tylenol 650 mg p.o. q.6 hours p.r.n. for mild pain or fever. The patient can follow up with aforementioned PCP in 1 to 2 weeks. Follow up with Dr. Danielson in 2 weeks and follow up with Dr. Denny Briseno with Neurosurgery. He is affiliated with [facility], telephone #[phone] in about 2 weeks. The patient advised to keep a diary regarding any neurological signs or symptoms such as weakness or dizziness. Continue cardiac diet. Today on the day of discharge, vital signs, temperature 98.1, pulse 57, blood pressure 125/66, respirations 20, oxygen saturation 100% on room air. LABORATORY DATA: Sodium 140, potassium 3.9, chloride 108, CO2 of 21. BUN 10, creatinine 0.64, glucose 91. WBC 6.59, hemoglobin 12.8, hematocrit 41.1, platelets 289. Case was discussed with Dr. Danielson this morning. Case was also discussed with the patient's daughter, Lydia via FaceTime in the presence of her nurse, ROB Salas. The patient remains somewhat slow to grasp concepts and has a slow recall and it is likely that she will not remember the details of the discharge instructions and these will be provided to her daughter, Lydia. [place]i interpretation available via the patient's nurse, ROB Salas. No change in physical examination from yesterday. Dictated by Shaun Lambert, SAVANNA MD MURALI Stroud/ALYSONL /[id number]
== END 2019-11-08 17:22 | disposition home or self-care (01) ==
LOC: ER 14:16 → ERHOLD 16:19 → MED/SURG2 17:50
PROVIDERS: ADMIT Internal Medicine; ATTEND Internal Medicine
DX: I67.1 Cerebral aneurysm, nonruptured (principal); R41.82 Altered mental status, unspecified; Z88.6 Allergy status to analgesic agent; I10 Essential (primary) hypertension; E78.5 Hyperlipidemia, unspecified; Z82.49 Family history of ischemic heart disease and other diseases of the circulatory system; Z82.61 Family history of arthritis; R00.1 Bradycardia, unspecified; Z11.59 Encounter for screening for other viral diseases
CPT/HCPCS: 36415 ×3; 70450; 70544; 70547; 70551; 80048; 80053; 80061; 81001; 82550; 82553; 82607; 82948; 83036; 83090; 83519 ×3; 83540; 83735; 83874; 84100; 84443; 84466; 84484; 85025 ×3; 85597; 85598; 85610; 85613; 85651; 85730 ×2; 85732; 86039; 86146 ×3; 86147; 86148; 86235; 86255; 86849; 93005; 93306 ×2; 93880; 95812; 97116; 97161; 99284; G0378 ×4; U0002